=== PATIENT | male | born 1990 | race Two or more races ===

== ENCOUNTER 2024-09-15 16:20 | Observation (INO) | payer MEDICAID, OTHER, SELFPAY ==
[2024-09-15 16:26] VITALS: BP 146/97; PULSE 81; RESP 16; TEMP 36.8; O2SAT 99; BMI 26.6
--- NOTE | 2024-09-15 17:01 | EDNOTE_ITS ---
ED Medical Clearance RME/HPI General Chief complaint: Medical Clearance Stated complaint: MEDICAL CLEARANCE Time Seen by Provider: 09/15/24 16:44 Arrival date/time: 09/15/24 16:20 This is a 34-year-old male that is brought in by assisted. Per officers patient has something in anal cavity that he is hiding. Patient ordered by the court to have foreign body removed from his rectum. Patient denies past medical history. Patient reports inguinal hernia in the past on the left side. Patient denies alcohol or drug use. Patient denies having anything in his rectum. Patient denies hiding any foreign body. Related Information Home Medications ?Medication ?Instructions ?Recorded ?Confirmed No Known Home Medications 06/21/18 09/16/24 Allergies Allergy/AdvReac Type Severity Reaction Status Date / Time No Known Allergies Allergy Verified 04/09/21 23:58 Review of Systems Review of Systems Systems Reviewed: All systems reviewed, normal except as documented Past Medical History Social History SMOKING STATUS: Current every day smoker Travel History EBOLA RISK: No ED Exam General General appearance: Present alert and in no apparent distress Head Head exam: Present atraumatic Eye Eye exam: Present normal appearance, PERRL and EOMI ENT ENT exam: Present normal exam, normal oropharynx and mucous membranes moist Neck Neck exam: Present normal inspection, full ROM and trachea midline Chest Chest inspection: Present normal inspection and symmetric chest wall rise Respiratory Respiratory exam: Present normal lung sounds bilaterally Cardiovascular Cardiovascular exam: Present regular rate, normal rhythm and normal heart sounds Abdominal Exam Abdominal exam: Present soft and other (Abdomen soft and nontender.) Extremities Exam Extremities exam: Present normal inspection and full ROM Back Exam Back exam: Present normal inspection and full ROM Neurological Exam Neurological exam: Present alert and oriented X3 Psychiatric Psychiatric exam: Present normal affect and normal mood Skin Skin exam: Present warm, dry, intact and normal color Course Quality Measures none Orders Category Date Time Status Patient Condition Routine Admission 09/15/24 22:[address] in Observation Status Routine Admission 09/15/24 22:35 Active Activity as Tolerated Routine Care 09/15/24 22:37 Ordered COVID-19 Screening Questionnaire NOW Care 09/15/24 21:[address] Screening NOW Care 09/15/24 18:03 Completed Continuous Pulse Oximetry NOW Care 09/15/24 22:34 Completed Decision to Admit X1 Care 09/15/24 21:59 Completed IV [Insert IV] STAT Care 09/15/24 18:04 Completed Notify provider NEEDED Care 09/15/24 22:35 Completed Consult to General Surgery Stat Cons 09/15/24 21:58 Ordered Diet Clear Liquid Diet 09/15/[address] abdomen pelvis w con Stat Exams 09/15/24 18:03 Completed KUB [XR abdomen 1V] Stat Exams 09/15/24 17:05 Completed CBC Stat Lab 09/15/24 17:27 Completed Comprehensive Metabolic Panel Stat Lab 09/15/24 17:27 Completed Drug Screen,Urine Stat Lab 09/15/24 21:06 Completed Urinalysis, C/S if Indicated Stat Lab 09/15/24 21:06 Completed Acetaminophen Tab [Tylenol Tab] Med 09/15/24 22:34 Discontinued 650 mg PO Q6H PRN Ondansetron Inj [Zofran Inj] Med 09/15/24 22:34 Discontinued 4 mg IV Q6H PRN Pantoprazole Inj [Protonix Inj] Med 09/16/24 09:00 Discontinued 40 mg IVP QDAY Sodium Chloride 0.9% 1000 ml [Ns] 1,000 ml Med 09/15/24 18:04 Discontinued IV 999 mls/hr Code Status Routine Oth 09/15/24 22:34 Completed Oxygen Delivery PRN RT 09/15/24 22:34 Completed Vital Signs Vital signs: Vital Signs Temperature 98.3 F 09/15/24 16:26 Pulse Rate 81 09/15/24 16:26 Respiratory Rate 16 09/15/24 16:26 Blood Pressure 146/97 H 09/15/24 16:26 Pulse Oximetry (%) 99 09/15/24 16:26 Oxygen Delivery Method Room Air 09/15/24 16:26 Medical Clearance MDM Narrative MDM Narrative:: This is a 34-year-old male that is brought in by assisted. Per officers patient has something in anal cavity that he is hiding. Patient ordered by the court to have foreign body removed from his rectum. Patient denies past medical history. Patient reports inguinal hernia in the past on the left side. Patient denies alcohol or drug use. Patient denies having anything in his rectum. Patient denies hiding any foreign body. Spoke to Yisel. He stated he would consult on patient. Plan is to give p atient GoLytely. If foreign body continues to be present in the morning he will take a look. Patient admitted to hospitalist team. Patient data External records reviewed:: [facility] previous records Clinical information provided by:: patient and law enforcement Social determinants that could affect healthcare access:: substance use Patient has the following chronic illnesses:: see note How is presenting disease/condition affected by chronic disease/condition?: no chronic disease Evaluation data The following diagnostics were reviewed and interpreted by me:: lab results and radiology exam(s) Lab and/or radiology exams considered but not ordered:: see note Interpretation Summary: see note Medications / Prescriptions Medications or Prescriptions considered but not ordered:: none Medication administrations:: Medication Administration History Discontinued Medications Acetaminophen (Acetaminophen 325 Mg Tablet) 650 mg PO Q6H PRN PRN Reason: Mild Pain 1-3 or Fever >100.4 Stop: 10/15/24 22:33 Clonidine (Clonidine Hcl 0.1 Mg Tablet) 0.1 mg PO TID [facility] Stop: 10/16/24 00:44 Last Admin: 09/16/24 06:03 Dose: Not Given Documented By: FF Non-Admin Reason: Patient Refused Admin: 09/16/24 00:45 Dose: Not Given Documented By: FF Non-Admin Reason: Patient Refused Heparin Sodium (Porcine) (Heparin Sod Inj 5000 Unit/Ml Vial) 5,000 unit SC Q8HR [facility] Stop: 09/30/24 05:59 Last Admin: 09/16/24 15:28 Dose: 5,000 unit Documented By: KD Co-signed By: JESSICA Admin: 09/16/24 06:01 Dose: 5,000 unit Documented By: EVON Co-signed By: MARGARITA Heparin Sodium (Porcine) (Heparin Sod Inj 5000 Unit/Ml Vial) 5,000 unit SC Q12HR [facility] Stop: 09/30/24 20:59 Last Admin: 09/17/24 09:53 Dose: 5,000 unit Documented By: ABRAHAM Co-signed By: JESSICA Admin: 09/16/24 20:05 Dose: 5,000 unit Documented By: JOCELYNE Co-signed By: Sodium Chloride (Ns) 1,000 mls @ 999 mls/hr IV .Q1H1M ONE Stop: 09/15/24 19:04 Last Infusion: 09/15/24 23:41 Dose: Infused Documented By: Admin: 09/15/24 19:24 Dose: 999 mls/hr Documented By: SF Ondansetron HCl (Ondansetron Inj 2 Mg/Ml Inj 2 Ml) 4 mg IV Q6H PRN; Protocol PRN Reason: NAUSEA OR VOMITING Stop: 10/15/24 22:33 Pantoprazole Sodium (Pantoprazole Inj 40 Mg Vial) 40 mg IVP QDAY [facility] Stop: 10/16/24 08:59 Last Admin: 09/17/24 09:53 Dose: 40 mg Documented By: Admin: 09/16/24 08:39 Dose: 40 mg Documented By: LOLIS Pantoprazole Sodium (Pantoprazole 40 Mg Tablet) 40 mg PO QDAY [facility] Stop: 10/16/24 08:59 Polyethylene Glycol/Electrolytes (Na Bowens/Nahco3/Geoff/Peg (Golytely) 4,000 Ml Btl) 4,000 ml PO X1 ONE Stop: 09/15/24 22:41 Last Admin: 09/16/24 00:52 Dose: 4,000 ml Documented By: FF Polyethylene Glycol/Electrolytes (Na Bowens/Nahco3/Geoff/Peg (Golytely) 4,000 Ml Btl) 4,000 ml PO X1 ONE Stop: 09/17/24 13:16 Last Admin: 09/17/24 16:26 Dose: Not Given Documented By: ABRAHAM Non-Admin Reason: PT PASSED FOREIGN BODY see mar Consultations Consultation(s) initiated? (list below): No Diagnosis Medical Clearance Differential Diagnosis: other (foreighn body rectum, constipation) Most likely diagnosis given after review of the tests above:: foreighn body in rectum Admission Indicated Admission indicated?: indicated Admission Request Was there a request for admission?: Yes Admission Attestation Admission request attestation: Discussed case with [] from Hospitalist service regarding admission. Discussed patients ED course, exam findings, labs, and radiology results. The Hospitalist [agrees,declines] to accept the patient for admission. Disposition Plan Disposition Plan: Admit Discharge Plan Plan Patient Disposition: Other Care w/in Hosp ([facility]) Patient condition on transfer: Stable Problem List Clinical Impression: Foreign body of rectum Patient/Caregiver Discharge Instructions Discharge Activity: activity as tolerated Other Activity Instructions:: Follow up with PCP in 1 week Return to ED if symptoms worsen. Diet Instructions: Regular PA/FLIGHT FOLLOWER Supervising Physician PA/FLIGHT FOLLOWER Supervising Physician: mally
--- NOTE | 2024-09-15 17:05 | XR_ITS ---
Examination: Abdomen AP single view Technique: AP portable supine abdomen, single view Exam date and time: September 15, 2024 1715 hrs. Indications: Ingested foreign body today. Findings: Linear filling defect projects over the bladder, clinical correlation advised Impression: Linear low density structure projects over the urinary bladder consistent with foreign body in the bladder, recommend ultrasound pelvis follow-up
[2024-09-15 17:48] LABS: Basophils % (Auto) 1 % (0-2.5); Eosinophils % (Auto) 0 % (0-10); Hematocrit 43.4 % (41.0-53.0); Immature Granulocytes % (Auto) 0 % (0-0); Immature Granulocytes Auto 0.03 Thou/mm3 (0.00-0.00); Lymphocytes # (Auto) 1.4 Thou/mm3 (1.0-4.8); Lymphocytes % (Auto) 16 % (10-50); Mean Corpuscular HGB Conc 34.6 g/dl (31.0-37.0); Mean Corpuscular Hemoglobin 31.5 pg (25.0-35.0); Mean Corpuscular Volume 91 fL (80-100); Monocytes # (Auto) 0.8 Thou/mm3 (0.0-0.8); Monocytes % (Auto) 9 % (0-12); Neutrophils # (Auto) 6.5 Thou/mm3 (1.8-7.7); Neutrophils % (Auto) 74 % (37-80); Nucleated Red Blood Cell % 0 /100 WBC (0); Platelet Count 347 Thou/mm3 (140-440); RDW Standard Deviation 44.4 fL (35.1-43.9); Red Blood Count 4.76 Miln/mm3 (4.50-5.90); White Blood Count 8.9 Thou/mm3 (3.8-10.6)
[2024-09-15 17:59] LABS: Alanine Aminotransferase 30 U/L (10-49); Albumin, Serum 5.2 gm/dL (3.5-5.0); Albumin/Globulin Ratio 1.8 (1.2-2.2); Alkaline Phosphatase 67 U/L (46-116); Anion Gap 5 (7-16); Aspartate Amino Transferase 29 U/L (0-34); BUN/Creatinine Ratio 10 Ratio (12-20); Bilirubin,Total 0.6 mg/dL (0.3-1.2); Blood Urea Nitrogen 9 mg/dL (9-23); Calcium 9.8 mg/dL (8.3-10.6); Calcium (Corrected) 9.8 mg/dL (8.5-10.1); Carbon Dioxide 28.2 mMol/L (20.0-31.0); Chloride 103 mMol/L (98-107); Creatinine (Component) 0.9 mg/dL (0.6-1.3); Estimated Creatinine Clearance 105.3 mL/min (>60); Globulin 2.9 gm/dL (2.3-3.5); Glucose 112 mg/dL (74-106); Osmolality,Calculated 271 (275-295); Potassium 3.9 mMol/L (3.4-5.1); Sodium 136 mMol/L (136-145); Total Protein 8.1 gm/dL (5.7-8.2); eGFR > 60 See Note
--- NOTE | 2024-09-15 18:03 | XR_ITS ---
Examination: CT abdomen with intravenous contrast CT pelvis with intravenous contrast 2-D coronal reconstructions 2-D sagittal reconstructions Date and time of exam:September 15, 2024 2048 hrs. Indications: Foreign body history. CTDI: vol (mGy) 6.47 DLP: (mGycm) 353 Technique: Multiple axial sections of the abdomen and pelvis have been obtained. 64 slice high-resolution scanner used. 3 mm axial sections have been obtained, post intravenous injection 60 cc [id number] 2-D sagittal, coronal reconstructions obtained. Low dose protocols were performed. One or more of the following dose reduction techniques were used; automated exposure control, adjustment of the mA and/or KV according to patient size, use of iterative reconstruction technique. Findings: 2 foreign bodies project in the rectum, 7 cm, 6 cm The bladder is intact No focal liver or splenic lesion No bowel obstruction No hydronephrosis Aorta normal size Normal appendix No diverticulitis Urinary bladder intact Impression: 2 large foreign bodies in the rectum
[2024-09-15] MEDS: SODIUM CHLORIDE 0.9% 1000 ML 1,000 ML 999 ML IV (19:24)
[2024-09-15 19:48] VITALS: BP 168/99; PULSE 71; RESP 18; TEMP 36.9; O2SAT 100
[2024-09-15 21:32] LABS: Collection Type, Urine Voided
[2024-09-15 21:48] LABS: Bilirubin,Urine Negative (Negative); Blood,Urine Negative (Negative); Clarity,Urine Clear (Clear/Hazy); Color,Urine Lt-Yellow (Lt Yel-Yel); Culture Indicated,Urine Not Indicated; Glucose, Urine Negative (Negative); Ketones,Urine Negative (Negative); Leukocyte Esterase,Urine Negative (Negative); Nitrite,Urine Negative (Negative); PH,Urine 6.5 (5.0-7.0); Protein,Urine Negative (Neg - Trace); RBC,Urine 2 /hpf (0-3); Specific Gravity,Urine 1.022 (1.001-1.035); Squamous Epithelial Cell,Urine < 1 /hpf (0-5); Urobilinogen,Urine Negative mg/dL (0.0-1.0); WBC,Urine 1 /hpf (0-5)
[2024-09-15 22:06] LABS: Amphetamine/Methamp Scrn,U Negative (Negative); Barbiturate Screen,Urine Negative (Negative); Benzodiazepines Screen,Urine Negative (Negative); Benzoylecgonine Screen, Ur Positive (Negative); Fentanyl Screen,Urine Negative (Negative); Opiate Screen,Urine Negative (Negative); THC Screen,Urine Positive (Negative)
--- NOTE | 2024-09-15 23:09 | PD.RESHP ---
Documentation for date of: 09/15/24 [facility] History of Present Illness History of present illness: cc: foreign object per rectum Patient is a 34-year-old male with an unremarkable past medical history who was brought into the emergency room from long term for foreign object per rectum. Patient denies foreign object, per officers in room it was noticed at 1400 hrs. Patient denied inserting any foreign objects in rectum or consuming any foreign objects. Patient denies abdominal pain, diarrhea, and denied hematochezia or melena. Last meal breakfast. Denied chest pain, denied palpitations or increased perspiration. Admitted on 09/15/2024 for foreign object per rectum. ER Course: Consult-Dr. Morillo from ER, Started Golytely Vitals: T98.3, HR 81, RR 16, BP 146/97, SpO2 99% RA Utox (09/15/2024): Cocaine Positive and Marijuana Positive Abdomen xray (09/15/2024): Linear low density structure projects over the urinary bladder consistent with foreign body in the bladder, recommend ultrasound pelvis follow-up. CT Abdomen/Pelvis (09/15/2024): 2 Large Foreign Bodies in Rectum. Bladder intact. NS 1 liter Bolus PMH: None Past Surgical History: hernia repair 2018 Past Family History: Father-HTN Home Medication: None Social History: Denied ilicit drug use Allergies: None Code Status: Full Code Review of Systems Review of Systems Narrative Review of Systems: General appearance: NO weight change, NO fatigue, NO weakness, NO fever, NO chills, NO night sweats, No cough Skin: NO rash, NO itching, NO sores, NO moles HEENT: NO Trauma, NO nausea, NO vomiting, NO visual changes, NO blurry vision, NO double vision, NO tinnitus, NO vertigo, NO ear discharge, NO rhinorrhea, NO stuffiness, NO sneezing, NO allergy, NO epistaxis. NO Hoarseness, NO sore throat, NO swollen neck. Cardiac: NO Palpitations, NO dyspnea on exertion, NO orthopnea, NO paroxysmal nocturnal dyspnea, NO edema Respiratory: NO Shortness of Breath, NO Wheezing, NO Cough, NO Sputum, NO hemoptysis GI:NO appetite, NO nausea, NO vomiting, NO dysphagia, NO changes in bowel frequency, NO stool color, NO diarrhea, NO constipation, NO hemetemesis, NO hemorrhoids, NO melena, NO hematechezia, NO abdominal pain, NO jaundice Renal: NO frequency, NO hesitancy, NO urgency, NO hematuria, NO nocturia, NO incontinence MSK: NO muscle weakness, NO gout, NO arthritis, NO muscle stiffness Neuro: NO headaches, NO tremors, NO weakness, NO paralysis, NO seizures, NO loss of consciousness, NO numbness. Hem: NO anemia, NO easy bruising/bleeding, NO petechiae, NO purpura Endo: NO heat/cold intolerance, NO excessive sweating, NO polyuria, NO polydipsia, NO polyphagia, NO thyroid problems, NO diabetes Pysch: NO mood, NO anxiety, NO depression Exam Vital Signs Temp Pulse Resp BP Pulse Ox O2 Del Method 98.4 F 71 18 168/99 H 100 Room Air 09/15/24 19:48 09/15/24 19:48 09/15/24 19:48 09/15/24 19:48 09/15/24 19:48 09/15/24 19:48 Narrative Exam General Appearance: Alert & Oriented X3, well-nourished male who is lying in bed in no acute distress HEENT: Skull symmetrical and atraumatic. Conjunctivae pink and moist. Pupils equal, round, reactive to light and accommodation (PERRL). External ear without lesion or discharge. Straight, nares patient, mucosa pink, no discharge. No thyroid nodule appreciated. No cervical lymphadenopathy. Cardio: Normal Rate and Rhythm with S1 and S2 heart sounds. No murmurs or extra heart sounds auscultated. No bruits on carotid auscultation. No peripheral edema or cyanosis. Lungs: Symmetric with good expansion. Chest and back non-tender. Breath sounds vesicular without crackles, wheezing or rhonchi Abdomen: Non-tender, Non-distended, Normal Reactive Bowel Sounds Neuro: Alert, cooperative, oriented to person, place, and time. Speech clear. CN grossly intact. Upper motor strength 5/5 and Lower motor strength 5/5. Sensation intact. Results: Labs 09/15/24 17:27 09/15/24 17:27 Labs: Short CBC 09/15/24 Range/Units 17:27 WBC 8.9 (3.8-10.6) Thou/mm3 Hgb 15.0 (13.5-16.0) g/dL Hct 43.4 (41.0-53.0) % Plt Count 347 (140-440) Thou/mm3 BMP 09/15/24 17:27 Sodium 136 Potassium 3.9 Chloride 103 Carbon Dioxide 28.2 BUN 9 Creatinine 0.9 Glucose 112 H Calcium 9.8 Liver Function 09/15/24 Range/Units 17:27 Total Bilirubin 0.6 (0.3-1.2) mg/dL AST 29 (0-34) U/L ALT 30 (10-49) U/L Alkaline Phosphatase 67 (46-116) U/L Albumin 5.2 H (3.5-5.0) gm/dL Urine 09/15/24 Range/Units 21:06 Urine Color Lt-Yellow (Lt Yel-Yel) Urine Clarity Clear (Clear/Hazy) Urine pH 6.5 (5.0-7.0) Ur Specific [place] 1.022 (1.001-1.035) Urine Protein Negative (Neg - Trace) Urine Glucose (UA) Negative (Negative) Quality Measures Quality Measures VTE prophylaxis Medications Home Medications and Allergies Home Medications ?Medication ?Instructions ?Recorded ?Confirmed ?Type No Known Home Medications 06/21/18 04/09/21 History Allergies Allergy/AdvReac Type Severity Reaction Status Date / Time No Known Allergies Allergy Verified 04/09/21 23:58 Visit Medications Acetaminophen (Acetaminophen 325 Mg Tablet) 650 mg PO Q6H PRN PRN Reason: Mild Pain 1-3 or Fever >100.4 Stop: 10/15/24 22:33 Heparin Sodium (Porcine) (Heparin Sod Inj 5000 Unit/Ml Vial) 5,000 unit SC Q8HR [facility] Stop: 09/30/24 05:59 Ondansetron HCl (Ondansetron Inj 2 Mg/Ml Inj 2 Ml) 4 mg IV Q6H PRN; Protocol PRN Reason: NAUSEA OR VOMITING Stop: 10/15/24 22:33 Pantoprazole Sodium (Pantoprazole Inj 40 Mg Vial) 40 mg IVP QDAY [facility] Stop: 10/16/24 08:59 Discontinued Medications Sodium Chloride (Ns) 1,000 mls @ 999 mls/hr IV .Q1H1M ONE Stop: 09/15/24 19:04 Last Admin: 09/15/24 19:24 Dose: 999 mls/hr Polyethylene Glycol/Electrolytes (Na Bowens/Nahco3/Geoff/Peg (Golytely) 4,000 Ml Btl) 4,000 ml PO X1 ONE Stop: 09/15/24 22:41 Assessment & Plan Plan Patient is a 34 year old male with an unremarkable past medical history coming from alf from and admitted on 09/15/2024 for foreign object per rectum. #Foreign Object per rectum #Hypertension Patient denied placing foreign objects in rectum. Denied GI symptoms and denied palpitations. Patient has had elevated blood pressure, but given foreign objects in rectum likely secondary to discomfort, no past medical history of HTN, cardiac, and DM. Consider anti-hypertensives. Diagnostics: Vitals: T98.3, HR 81, RR 16, BP 146/97, SpO2 99% RA Utox (09/15/2024): Cocaine Positive and Marijuana Positive Abdomen xray (09/15/2024): Linear low density structure projects over the urinary bladder consistent with foreign body in the bladder, recommend ultrasound pelvis follow-up. CT Abdomen/Pelvis (09/15/2024): 2 Large Foreign Bodies in Rectum. Bladder intact. Plan: -Acetaminophen 650 mg PO PRN -Golytle x1 -Zofran PRN -Pantoprazole 40 mg IVP QDay -CBC -CMP -Clear liquid diet -Tele-bed -Consult General Surgery, Dr. Morillo, appreciate recommendations Health Maintenance: Disp: Pt is currently admitted to floors for further management of foreign object, awaiting for foreign object to pass FEN: clear liquid diet DVT: on subQ heparin Code: Full code - The patient's plan was discussed with attending Dr. Sharonda Draper MD PGY1 Internal Medicine Attending Provider Attestation/Addendum 23-year-old male patient was brought in by [employer]unch[employer] Food Service Supervisor department to the emergency room for wellness check and workup after he inserted unknown material into his rectum. Patient said that he ate last this morning. He denies abdominal pain no nausea vomiting. He has no rectal pain no bleeding. He is not febrile. He has no abdominal distention. Patient otherwise feels well. He will be admitted, surgical evaluation was done. The patient was will be given GoLytely. GoLytely. He has stable vital signs. He has no mental status change. He answers appropriately. His vital signs are stable in the ER. Patient has no tachypnea no tachycardia and no fever. Discussed with housestaff
[2024-09-16] VITALS (12 sets, daily range): BP systolic 111–147; BP diastolic 75–99; PULSE 44–103; RESP 13–100; TEMP 36.1–37.3; O2SAT 93–99; BMI 27.1
[2024-09-16] MEDS: NA SU/NAHCO3/KC/PEG (Golytely) 4,000 ML BTL 4000 ML PO (00:52)
[2024-09-16 02:28] LABS: Basophils # (Auto) 0.1 Thou/mm3 (0.0-0.2); Basophils % (Auto) 1 % (0-2.5); Eosinophils # (Auto) 0.2 Thou/mm3 (0.0-0.5); Eosinophils % (Auto) 2 % (0-10); Hematocrit 44.7 % (41.0-53.0); Hemoglobin 15.2 g/dL (13.5-16.0); Immature Granulocytes % (Auto) 0 % (0-0); Immature Granulocytes Auto 0.02 Thou/mm3 (0.00-0.00); Lymphocytes # (Auto) 2.3 Thou/mm3 (1.0-4.8); Lymphocytes % (Auto) 27 % (10-50); Mean Corpuscular Hemoglobin 30.9 pg (25.0-35.0); Mean Corpuscular Volume 91 fL (80-100); Monocytes # (Auto) 0.9 Thou/mm3 (0.0-0.8); Monocytes % (Auto) 10 % (0-12); Neutrophils # (Auto) 5.1 Thou/mm3 (1.8-7.7); Neutrophils % (Auto) 60 % (37-80); Nucleated Red Blood Cell % 0 /100 WBC (0); Platelet Count 344 Thou/mm3 (140-440); Red Blood Count 4.92 Miln/mm3 (4.50-5.90); White Blood Count 8.5 Thou/mm3 (3.8-10.6)
[2024-09-16 02:32] LABS: Alanine Aminotransferase 29 U/L (10-49); Albumin, Serum 5.1 gm/dL (3.5-5.0); Albumin/Globulin Ratio 1.8 (1.2-2.2); Alkaline Phosphatase 67 U/L (46-116); Anion Gap 4 (7-16); Aspartate Amino Transferase 26 U/L (0-34); BUN/Creatinine Ratio 9 Ratio (12-20); Bilirubin,Total 0.8 mg/dL (0.3-1.2); Blood Urea Nitrogen 8 mg/dL (9-23); Calcium 9.8 mg/dL (8.3-10.6); Calcium (Corrected) 9.8 mg/dL (8.5-10.1); Carbon Dioxide 28.3 mMol/L (20.0-31.0); Chloride 105 mMol/L (98-107); Creatinine (Component) 0.9 mg/dL (0.6-1.3); Estimated Creatinine Clearance 105.3 mL/min (>60); Globulin 2.8 gm/dL (2.3-3.5); Glucose 105 mg/dL (74-106); Magnesium 2.3 mg/dL (1.6-2.6); Osmolality,Calculated 272 (275-295); Potassium 3.8 mMol/L (3.4-5.1); Sodium 137 mMol/L (136-145); Total Protein 7.9 gm/dL (5.7-8.2); eGFR > 60 See Note
--- NOTE | 2024-09-16 02:45 | PC.NURSE ---
Encouraged the patient to continue drinking Golytely but pt got agitated and stated I'm tired! I want to rest! . The copper plate printer at bedside stated that the pt had a bowel movement and passed 1 bag but did not show it to PARISH Rachel.
[2024-09-16] MEDS: HEPARIN SOD INJ 5000 UNIT/ML VIAL SC ×3 (06:01→20:05)
--- NOTE | 2024-09-16 06:15 | PC.NURSE ---
Per pt's RN Andrae, pt is refusing to drink Golytely when offered, stated I'm tired and want to get some sleep . Upon checking on pt, officer was trying to wake him up to drink more Golytely. Officer stated that pt has passed 1 bag so far and kept it in a plastic bag.
--- NOTE | 2024-09-16 06:19 | PC.IP ---
This RN went to the pt's room and ask the copra sampler to show the bag that the pt poop. Pt had pooped a small oblong shaped bag about 2cm big.
[2024-09-16] MEDS: PANTOPRAZOLE INJ 40 MG VIAL IVP (08:39)
--- NOTE | 2024-09-16 11:23 | ESCONSULT_ITS ---
HPI Consult details Consult date: 09/16/24 Reason for consultation narrative: Foreign body in the rectum History of present illness: 34-year-old male who [facility] He was witnessed to have placed foreign objects in his rectum. He denies abdominal pain, nausea or vomiting. CT scan of the abdomen and pelvis revealed 2 foreign objects in the rectum. Patient was started on GoLytely after which one of the foreign objects came out and the abdomen is still remained Past Medical History Surgical History OTHER SURGICAL HX: Left radical orchiectomy with repair of left inguinal hernia Meds Home Medications and Allergies Home Medications ?Medication ?Instructions ?Recorded ?Confirmed ?Type No Known Home Medications 06/21/18 04/09/21 History Allergies Allergy/AdvReac Type Severity Reaction Status Date / Time No Known Allergies Allergy Verified 04/09/21 23:58 Exam Vital Signs Temp Pulse Resp BP Pulse Ox O2 Del Method 97.6 F 46 L 18 123/84 98 Room Air 09/16/24 07:57 09/16/24 08:18 09/16/24 08:04 09/16/24 07:57 09/16/24 07:57 09/16/24 07:57 Constitutional Constitutional: no acute distress Routine Abdominal Exam Abdominal: Present soft and normoactive bowel sounds; Absent tenderness or distended Results Results: Laboratory Laboratory results: results reviewed Results: Imaging CT scan - abdomen: report reviewed and image reviewed CT scan - pelvis: report reviewed and image reviewed Assessment & Plan Problem List (1) Foreign body of rectum: Status: Acute Plan Continue to finish GoLytely until the second foreign body is removed. If not successful he may need to be taken to the operating room for removal of foreign body from the rectum under anesthesia.
--- NOTE | 2024-09-16 12:17 | ESPR_ITS ---
<Statement entered by Joaquin Etienne MD - 09/16/24 17:55> Senior Resident Attestation: I supervised/discussed management plan with resident physician Dr. Hay, and was involved in the care of this patient. I personally saw and examined the patient and discussed the assessment and plan with the entire medicine team, including my attending. I agree with the assessment and plan as documented. Patient's care was discussed with attending physician, Dr. Renetta Etienne MD PGY-3 Documentation for date of: 09/16/24 Subjective Subjective Interval history: Patient seen at bedside. Patient reports he has weed in his rectum that he was hiding. Urine tox screen was positive for cocaine and THC. Was seen by general surgeon, patient is on GoLytely. Patient has passed 1 foreign body, has the other foreign body in rectum Will continue to monitor patient Exam Vital Signs Temp Pulse Resp BP Pulse Ox O2 Del Method 97.6 F 46 L 18 123/84 98 Room Air 09/16/24 07:57 09/16/24 08:18 09/16/24 08:04 09/16/24 07:57 09/16/24 07:57 09/16/24 07:57 Narrative Exam General Appearance: Alert & Oriented X3, well-nourished male who is lying in bed in no acute distress HEENT: Skull symmetrical and atraumatic. Conjunctivae pink and moist. Pupils equal, round, reactive to light and accommodation (PERRL). External ear without lesion or discharge. Straight, nares patient, mucosa pink, no discharge. No thyroid nodule appreciated. No cervical lymphadenopathy. Cardio: Normal Rate and Rhythm with S1 and S2 heart sounds. No murmurs or extra heart sounds auscultated. No bruits on carotid auscultation. No peripheral edema or cyanosis. Lungs: Symmetric with good expansion. Chest and back non-tender. Breath sounds vesicular without crackles, wheezing or rhonchi Abdomen: Non-tender, Non-distended, Normal Reactive Bowel Sounds Neuro: Alert, cooperative, oriented to person, place, and time. Speech clear. CN grossly intact. Upper motor strength 5/5 and Lower motor strength 5/5. Sensation intact. Objective Labs 09/16/24 01:53 09/16/24 01:53 Labs: Laboratory Results - last 24 hr 09/15/24 09/15/24 09/16/24 17:27 21:06 01:53 WBC 8.9 8.5 RBC 4.76 4.92 Hgb 15.0 15.2 Hct 43.4 44.7 MCV 91 91 MCH 31.5 30.9 MCHC 34.6 34.0 RDW Std Deviation 44.4 H 44.0 H Plt Count 347 344 Neut % (Auto) 74 60 Lymph % (Auto) 16 27 [place] % (Auto) 9 10 Eos % (Auto) 0 2 Baso % (Auto) 1 1 Neut # (Auto) 6.5 5.1 Lymph # (Auto) 1.4 2.3 [place] # (Auto) 0.8 0.9 H Eos # (Auto) 0.0 0.2 Baso # (Auto) 0.0 0.1 Immature Gran # (Auto) 0.03 H 0.02 H Absolute Nucleated RBC 0.00 0.00 Immature Gran % 0 0 Nucleated RBC % 0 0 Sodium 136 137 Potassium 3.9 3.8 Chloride 103 105 Carbon Dioxide 28.2 28.3 Anion Gap 5 L 4 L BUN 9 8 L Creatinine 0.9 0.9 Estim Creat Clear Calc 105.3 105.3 eGFR > 60 > 60 BUN/Creatinine Ratio 10 L 9 L Glucose 112 H 105 Calculated Osmolality 271 L 272 L Calcium 9.8 9.8 Corrected Calcium 9.8 9.8 Magnesium 2.3 Total Bilirubin 0.6 0.8 AST 29 26 ALT 30 29 Alkaline Phosphatase 67 67 Total Protein 8.1 7.9 Albumin 5.2 H 5.1 H Globulin 2.9 2.8 Albumin/Globulin Ratio 1.8 1.8 Ur Collection Type Voided Urine Color Lt-Yellow Urine Clarity Clear Urine pH 6.5 Ur Specific [place] 1.022 Urine Protein Negative Urine Glucose (UA) Negative Urine Ketones Negative Urine Blood Negative Urine Nitrite Negative Urine Bilirubin Negative Urine Urobilinogen (Auto) Negative Ur Leukocyte Esterase Negative Urine RBC 2 Urine WBC 1 Ur Squamous Epith Cells < 1 Urine Bacteria None Ur Culture Indicated? Not Indicated Urine Opiates Screen Negative Urine Fentanyl Screen Negative Ur Barbiturates Screen Negative U Amphetamin/Meth Scrn Negative U Benzodiazepines Scrn Negative U Cocaine Metab Screen Positive A U Marijuana (THC) Screen Positive A Quality Measures Quality Measures VTE prophylaxis Assessment & Plan Assessment Current Active Medications: Generic Name Dose Route Start Last Admin Trade Name Freq PRN Reason Stop Dose Admin Acetaminophen 650 mg 09/15/24 22:34 Acetaminophen 325 Mg Tablet PO 10/15/24 22:33 Q6H PRN Mild Pain 1-3 or Fever >100.4 Heparin Sodium (Porcine) 5,000 unit 09/16/24 06:00 09/16/24 06:01 Heparin Sod Inj 5000 Unit/Ml Vial SC 09/30/24 05:59 5,000 unit Q8HR LUISA Administration Ondansetron HCl 4 mg 09/15/24 22:34 Ondansetron Inj 2 Mg/Ml Inj 2 Ml IV 10/15/24 22:33 Q6H PRN NAUSEA OR VOMITING Protocol Pantoprazole Sodium 40 mg 09/16/24 09:00 09/16/24 08:39 Pantoprazole Inj 40 Mg Vial IVP 10/16/24 08:59 40 mg QDAY ULISA Administration Plan Assessment and plan: Summary: Patient is a 34 year old male with an unremarkable past medical history coming from half-way from and admitted on 09/15/2024 for foreign object per rectum. #Foreign Object per rectum #Hypertension, resolved Patient admits to having 'weed' per rectum. Patient had elevated blood pressure on admission, but given foreign objects in rectum likely secondary to discomfort, no past medical history of HTN, cardiac problems, and DM. Hypertension possibly in setting of cocaine withdrawal. Will continue to monitor blood pressure Abdomen xray (09/15/2024): Linear low density structure projects over the urinary bladder consistent with foreign body in the bladder, recommend ultrasound pelvis follow-up. CT Abdomen/Pelvis (09/15/2024): 2 Large Foreign Bodies in Rectum. Bladder intact. Plan: -Continue GoLytely prep -Consult General Surgery, Dr. Morillo, appreciate recommendations #Substance use #Cocaine use #THC use -Utox: Cocaine Positive and Marijuana Positive -Referral to social studies department chair -Patient advised to refrain from substance use DVT prophylaxis: Heparin every 12 hours GI prophylaxis: Not indicated Diet: Clear liquid, GoLytely Lines: Peripheral IV Code status: Full code Case discussed with Attending Dr. Jackson and Dr. Etienne PGY3. Javi Hay PGY1 Attending Provider Attestation/Addendum I have discussed and was present for the essential components of the history, physical examination, diagnosis, and treatment plan with the resident. I agree with the patient's care as documented by the resident and amended herein by me. Joshua Jackson DO. Although this document has been carefully reviewed, there may still be some phonetic and other typographical errors. These errors are purely grammatical due to imperfections in the software program and should not be construed in any way to compromise the substance of the patient's medical care during this visit.
--- NOTE | 2024-09-16 12:21 | PC.SS ---
Patient Carlos Camacho is a 34 Year old male admitted for Foreign object per rectum. Patient was brought in by [facility]. Patient reports his mother Eleni Camacho is his surrogate decision maker [phone]. Patient is able to complete all ADL's independently. once [facility] is medically [facility]
[2024-09-17] VITALS: BP 122/87; PULSE 76; RESP 18; TEMP 36.8; O2SAT 98
[2024-09-17 04:00] VITALS: BP 117/68; PULSE 51; PULSE 59; RESP 18; TEMP 36.4; O2SAT 98
[2024-09-17 05:55] LABS: Basophils % (Auto) 1 % (0-2.5); Eosinophils # (Auto) 0.2 Thou/mm3 (0.0-0.5); Eosinophils % (Auto) 3 % (0-10); Hematocrit 43.3 % (41.0-53.0); Hemoglobin 14.6 g/dL (13.5-16.0); Immature Granulocytes % (Auto) 0 % (0-0); Immature Granulocytes Auto 0.01 Thou/mm3 (0.00-0.00); Lymphocytes # (Auto) 1.8 Thou/mm3 (1.0-4.8); Lymphocytes % (Auto) 28 % (10-50); Mean Corpuscular HGB Conc 33.7 g/dl (31.0-37.0); Mean Corpuscular Volume 92 fL (80-100); Monocytes # (Auto) 0.7 Thou/mm3 (0.0-0.8); Monocytes % (Auto) 11 % (0-12); Neutrophils # (Auto) 3.7 Thou/mm3 (1.8-7.7); Neutrophils % (Auto) 57 % (37-80); Nucleated Red Blood Cell % 0 /100 WBC (0); Platelet Count 319 Thou/mm3 (140-440); RDW Standard Deviation 44.5 fL (35.1-43.9); Red Blood Count 4.71 Miln/mm3 (4.50-5.90); White Blood Count 6.4 Thou/mm3 (3.8-10.6)
[2024-09-17 06:19] LABS: Alanine Aminotransferase 27 U/L (10-49); Albumin, Serum 4.5 gm/dL (3.5-5.0); Albumin/Globulin Ratio 1.9 (1.2-2.2); Alkaline Phosphatase 59 U/L (46-116); Anion Gap 5 (7-16); Aspartate Amino Transferase 26 U/L (0-34); BUN/Creatinine Ratio 8 Ratio (12-20); Blood Urea Nitrogen 7 mg/dL (9-23); Calcium 9.6 mg/dL (8.3-10.6); Calcium (Corrected) 9.6 mg/dL (8.5-10.1); Carbon Dioxide 30.3 mMol/L (20.0-31.0); Chloride 104 mMol/L (98-107); Creatinine (Component) 0.9 mg/dL (0.6-1.3); Estimated Creatinine Clearance 105.3 mL/min (>60); Globulin 2.4 gm/dL (2.3-3.5); Glucose 102 mg/dL (74-106); Osmolality,Calculated 275 (275-295); Potassium 3.7 mMol/L (3.4-5.1); Sodium 139 mMol/L (136-145); Total Protein 6.9 gm/dL (5.7-8.2); eGFR > 60 See Note
--- NOTE | 2024-09-17 07:52 | PC.NURSE ---
PT PASSED FOREIGN BODY THAT MEASURES 6.8 CM IN LENGTH AND 2.8 CM IN WIDTH. FOREIGN BODY APPEARS TO BE WHITE WITH PLASTIC WRAP AROUND IT. PER OFFICER PT PASSED ADDITIONAL FOREIGN BODY MALATHI NIGHT. CT SHOWED 2 FOREIGN BODIES IN THE RECTUM. WILL UPDATE .
--- NOTE | 2024-09-17 07:57 | PC.NURSE ---
NOTIFIED THAT PT PASSED FOREIGN BODY. THEY WILL COME SEE PT.
[2024-09-17 08:00] VITALS: BP 135/78; PULSE 58; RESP 15; TEMP 36.6; O2SAT 98
--- NOTE | 2024-09-17 09:47 | XR_ITS ---
Examination: Abdomen AP single view Technique: AP portable supine abdomen, single view Exam date and time: September 17, 2024 0956 hrs. Indications: History foreign bodies in the rectum on CT abdomen pelvis September 15, 2024 Findings: There remains foreign bodies in the central pelvis likely projecting in the rectum No obstruction Impression: There remain foreign bodies in the pelvis, likely in the rectum, the largest 6.3 cm
[2024-09-17] MEDS: HEPARIN SOD INJ 5000 UNIT/ML VIAL SC (09:53)
[2024-09-17] MEDS: PANTOPRAZOLE INJ 40 MG VIAL IVP (09:53)
--- NOTE | 2024-09-17 10:11 | PD.SURPROG ---
Documentation for date of: 09/17/24 Subjective Subjective Narrative: Patient is seen and examined. He denies abdominal pain. He had multiple bowel movement and reportedly passed the second foreign body from his rectum Exam Vital Signs Temp Pulse Resp BP Pulse Ox O2 Del Method 97.8 F 58 L 15 135/78 H 98 Room Air 09/17/24 08:00 09/17/24 08:00 09/17/24 08:00 09/17/24 08:00 09/17/24 08:00 09/17/24 08:00 Constitutional Constitutional: no acute distress Routine Abdominal Exam Abdominal: Present soft and normoactive bowel sounds; Absent tenderness or distended Assessment & Plan Diagnosis (1) Foreign body of rectum: Status: Acute Plan He is reportedly passed both foreign bodies from his rectum. Clinically he is stable. May discharge
--- NOTE | 2024-09-17 10:29 | PC.NURSE ---
X-RAY SHOW FOREIGN BODY STILL REMAINING IN PELVIC AREA, MD MADE AWARE, PT WILL CONT GOLYTELY. PT REFUSES TO ADMIT TO HOW MANY FOREIGN BODIES REMAIN.
[2024-09-17 11:31] VITALS: PULSE 63; RESP 16; RESP 97
[2024-09-17 12:00] VITALS: BP 134/81; PULSE 56; PULSE 63; RESP 10; TEMP 37.1; O2SAT 97
--- NOTE | 2024-09-17 12:58 | ESPR_ITS ---
<Statement entered by Joaquin Etienne MD - 09/17/24 15:24> Senior Resident Attestation: I supervised/discussed management plan with resident physician Dr. Gamez, and was involved in the care of this patient. I personally saw and examined the patient and discussed the assessment and plan with the entire medicine team, including my attending. I agree with the assessment and plan as documented. Patient's care was discussed with attending physician, Dr. Renetta Etienne MD PGY-3 Documentation for date of: 09/17/24 Subjective Subjective Interval history: Patient seen at bedside. Patient passed 2 foreign bodies this morning Repeat x-ray showed persistence of foreign bodies in rectum Will continue GoLytely Patient otherwise denies any discomfort, has no complaints. Exam Vital Signs Temp Pulse Resp BP Pulse Ox O2 Del Method 98.8 F 56 L 10 L 134/81 H 97 Room Air 09/17/24 12:00 09/17/24 12:00 09/17/24 12:00 09/17/24 12:00 09/17/24 12:00 09/17/24 12:00 Narrative Exam General Appearance: Alert & Oriented X3, well-nourished male who is lying in bed in no acute distress HEENT: Skull symmetrical and atraumatic. Conjunctivae pink and moist. Pupils equal, round, reactive to light and accommodation (PERRL). External ear without lesion or discharge. Straight, nares patient, mucosa pink, no discharge. No thyroid nodule appreciated. No cervical lymphadenopathy. Cardio: Normal Rate and Rhythm with S1 and S2 heart sounds. No murmurs or extra heart sounds auscultated. No bruits on carotid auscultation. No peripheral edema or cyanosis. Lungs: Symmetric with good expansion. Chest and back non-tender. Breath sounds vesicular without crackles, wheezing or rhonchi Abdomen: Non-tender, Non-distended, Normal Reactive Bowel Sounds Neuro: Alert, cooperative, oriented to person, place, and time. Speech clear. CN grossly intact. Upper motor strength 5/5 and Lower motor strength 5/5. Sensation intact. Objective Labs 09/17/24 05:13 09/17/24 05:13 Labs: Laboratory Results - last 24 hr 09/17/24 05:13 WBC 6.4 RBC 4.71 Hgb 14.6 Hct 43.3 MCV 92 MCH 31.0 MCHC 33.7 RDW Std Deviation 44.5 H Plt Count 319 Neut % (Auto) 57 Lymph % (Auto) 28 [place] % (Auto) 11 Eos % (Auto) 3 Baso % (Auto) 1 Neut # (Auto) 3.7 Lymph # (Auto) 1.8 [place] # (Auto) 0.7 Eos # (Auto) 0.2 Baso # (Auto) 0.0 Immature Gran # (Auto) 0.01 H Absolute Nucleated RBC 0.00 Immature Gran % 0 Nucleated RBC % 0 Sodium 139 Potassium 3.7 Chloride 104 Carbon Dioxide 30.3 Anion Gap 5 L BUN 7 L Creatinine 0.9 Estim Creat Clear Calc 105.3 eGFR > 60 BUN/Creatinine Ratio 8 L Glucose 102 Calculated Osmolality 275 Calcium 9.6 Corrected Calcium 9.6 Total Bilirubin 1.0 AST 26 ALT 27 Alkaline Phosphatase 59 Total Protein 6.9 Albumin 4.5 D Globulin 2.4 Albumin/Globulin Ratio 1.9 Quality Measures Quality Measures VTE prophylaxis Assessment & Plan Assessment Current Active Medications: Generic Name Dose Route Start Last Admin Trade Name Freq PRN Reason Stop Dose Admin Acetaminophen 650 mg 09/15/24 22:34 Acetaminophen 325 Mg Tablet PO 10/15/24 22:33 Q6H PRN Mild Pain 1-3 or Fever >100.4 Heparin Sodium (Porcine) 5,000 unit 09/16/24 21:00 09/17/24 09:53 Heparin Sod Inj 5000 Unit/Ml Vial SC 09/30/24 20:59 5,000 unit Q12HR LUISA Administration Ondansetron HCl 4 mg 09/15/24 22:34 Ondansetron Inj 2 Mg/Ml Inj 2 Ml IV 10/15/24 22:33 Q6H PRN NAUSEA OR VOMITING Protocol Pantoprazole Sodium 40 mg 09/16/24 09:00 09/17/24 09:53 Pantoprazole Inj 40 Mg Vial IVP 10/16/24 08:59 40 mg QDAY LUISA Administration Plan Assessment and Plan: Summary: Patient is a 34 year old male with an unremarkable past medical history coming from halfway from and admitted on 09/15/2024 for foreign object per rectum. #Foreign Object per rectum #Hypertension, resolved Patient admits to having 'weed' per rectum. Patient had elevated blood pressure on admission, but given foreign objects in rectum likely secondary to discomfort, no past medical history of HTN, cardiac problems, and DM. Hypertension possibly in setting of cocaine withdrawal. Will continue to monitor blood pressure CT Abdomen/Pelvis (09/15/2024): 2 Large Foreign Bodies in Rectum. Bladder intact. Abdomen x-ray (09/17/2024) shows foreign bodies remain in the pelvis likely in the rectum, largest 6.3 cm Plan: -Patient passed 2 foreign bodies -Repeat KUB shows presence of foreign bodies -Will continue GoLytely prep and clear liquid diet -Consult General Surgery, Dr. Morillo, markell recommendations #Substance use #Cocaine use #THC use -Utox: Cocaine Positive and Marijuana Positive -Referral to social service director -Patient advised to refrain from substance use DVT prophylaxis: Heparin every 12 hours GI prophylaxis: Not indicated Diet: Clear liquid, GoLytely Lines: Peripheral IV Code status: Full code Case discussed with Attending Dr. Jackson and Dr. Etienne PGY3. Javi Hay PGY1 Attending Provider Attestation/Addendum I have discussed and was present for the essential components of the history, physical examination, diagnosis, and treatment plan with the resident. I agree with the patient's care as documented by the resident and amended herein by me. Joshua Jackson DO. Patient seen and evaluated this AM. Thus far patient has past four objects after GoLytely, latest KUB negative for any additional objects. May consider discharge later on today Although this document has been carefully reviewed, there may still be some phonetic and other typographical errors. These errors are purely grammatical due to imperfections in the software program and should not be construed in any way to compromise the substance of the patient's medical care during this visit.
--- NOTE | 2024-09-17 13:32 | XR_ITS ---
Examination: Abdomen AP single view Technique: AP portable supine abdomen, single view Exam date and time: September 17, 2024 1350 hrs. Indications: Positive for foreign bodies in the rectum on earlier imaging since yesterday Findings: Nonobstructive bowel gas pattern. No definite opaque foreign bodies currently seen Impression: No definite opaque foreign bodies currently seen Advise clinical correlation and follow-up accordingly
--- NOTE | 2024-09-17 13:32 | PC.NURSE ---
PT PASSED 2 MORE FOREIGN BODIES, ONE MEASURING 6.8 CM IN LENGTH AND THE OTHER 3.5CM IN LENGTH. CALLED MD AND AWAITING ORDERS FOR X-RAY.
--- NOTE | 2024-09-17 15:53 | PD.RESDS ---
Planned Discharge Date 09/17/24 DS: Providers Provider Date of admission: 09/15/24 22:35 Primary care physician: Amina Shea([facility])MD Admitting Provider: Serg Mcdonough MD Attending Provider on Admission: Serg Mcdonough MD Consults: 09/15/24 21:58 Consult to General Surgery Stat Comment: Consulting Provider: Edmund Morillo Attending Provider on DC: Usman Jackson DO Discharging Provider: Usman Jackson DO Anticipated date of discharge: 09/17/24 DS: Diagnosis Problem List Completed Was Problem List Reviewed/Reconciled?: Yes Hospital Course Hospital Course Hospital course: Hospital Course: Mr. Camacho is a 34-year-old male with no significant past medical history who was admitted to [facility] for foreign bodies per rectum. Patient's abdominal x-ray on presentation showed suspicion of foreign body and CT abdomen pelvis confirmed to large foreign bodies in the rectum. General surgery was consulted and patient was started on GoLytely, eventually patient passed all the foreign bodies total four, and final abdominal x-ray showed no definitive opaque foreign bodies. Further plan is to discharge patient back to [facility] and follow-up with primary care physician in 1 week. Patient is stable for discharge. Discharge diagnosis # Foreign objects per rectum # Substance use # Cocaine use # THC use Plan of care discussed with attending physician Dr. Jackson. Javi Hay PGY1 Time Spent with Patient Time attestation: Total time spent providing and/or coordinating discharge services: Greater than 30 minutes Time spent: Greater than 30 minutes Exam Vital Signs Temp Pulse Resp BP Pulse Ox O2 Del Method 98.8 F 56 L 10 L 134/81 H 97 Room Air 09/17/24 12:00 09/17/24 12:00 09/17/24 12:00 09/17/24 12:00 09/17/24 12:00 09/17/24 12:00 Narrative Exam General Appearance: Alert & Oriented X3, well-nourished male who is lying in bed in no acute distress HEENT: Skull symmetrical and atraumatic. Conjunctivae pink and moist. Pupils equal, round, reactive to light and accommodation (PERRL). External ear without lesion or discharge. Straight, nares patient, mucosa pink, no discharge. No thyroid nodule appreciated. No cervical lymphadenopathy. Cardio: Normal Rate and Rhythm with S1 and S2 heart sounds. No murmurs or extra heart sounds auscultated. No bruits on carotid auscultation. No peripheral edema or cyanosis. Lungs: Symmetric with good expansion. Chest and back non-tender. Breath sounds vesicular without crackles, wheezing or rhonchi Abdomen: Non-tender, Non-distended, Normal Reactive Bowel Sounds Neuro: Alert, cooperative, oriented to person, place, and time. Speech clear. CN grossly intact. Upper motor strength 5/5 and Lower motor strength 5/5. Sensation intact. Discharge Plan Plan Patient Disposition: Detention/Court/Law Patient condition on transfer: Stable Care Plan Goals: Follow up with PCP in 1 week Return to ED if symptoms worsen. Prescriptions/Referrals Prescriptions/Med Rec: No Action No Known Home Medications Referrals: Shabbir([facility])Amina MD [Primary Care Provider] - Patient/Caregiver Discharge Instructions Discharge Activity: activity as tolerated Other Discharge Activity Instructions:: Follow up with PCP in 1 week Return to ED if symptoms worsen. Other Discharge Diet Instructions: Regular Education Materials: ED Rectal Foreign Body Removed ... Print Language: Tuvaluan Discharge Order Discharge Orders: Discharge (Routine); Ordered 09/17/24 Ordered By: Javi Hay Quality Discharge Quality Measures VTE prophylaxis Attestestation MD Attestation I have discussed and was present for the essential components of the discharge history, physical examination, diagnosis, and discharge treatment plan with the resident. I agree with the patient's discharge care as documented by the resident and amended herein by me. Joshua Jackson, . The patient understood all discharge instructions, all questions were answered satisfactorily. The patient was instructed to return to the Emergency Department is symptoms worsened or persisted. Patient passed a total of 4 foreign bodies as confirmed by imaging. The patient was stable, tolerating p.o. intake, afebrile and ambulatory at time of discharge. Although this document has been carefully reviewed, there may still be some phonetic and other typographical errors. These errors are purely grammatical due to imperfections in the software program and should not be construed in any way to compromise the substance of the patient's medical care during this visit.
[2024-09-17 16:00] VITALS: BP 136/86; PULSE 65; RESP 16; TEMP 36.7; O2SAT 98
== END 2024-09-17 16:39 ==
LOC: SERX 22:00 → SERHOLD 23:02 → S3SX 09-17 15:43
PROVIDERS: Nurse Practitioner Family; Admitting Provider Internal Medicine; Emergency Provider Emergency Medicine; PCP Internal Medicine; Visit Provider Internal Medicine
DX: T18.5XXA Foreign body in anus and rectum, initial encounter (principal); I10 Essential (primary) hypertension; F17.200 Nicotine dependence, unspecified, uncomplicated; F15.90 Other stimulant use, unspecified, uncomplicated
CPT/HCPCS: 36415; 74018; 74177; 80051; 80053; 80307; 81001; 83735; 85025; 94762; 96360; 96361; 96372; 99285; A4649; G0378; J1643; J2470; J7030; Q9967; J1644